=== PATIENT | male | born 1980 | race Caucasian/White ===

== ENCOUNTER → 2023-05-14 | Emergency (ER) | payer OTHER ==
[~2023-05-14] MED LIST: AMLODIPINE 10 MG TAB ONE
[2023-05-14 17:58] LABS: Absolute Basophils 0.1 K/uL (0-0.5); Absolute Eosinophils 0.2 K/uL (0-0.5); Absolute Lymphocytes (CBC) 1.3 K/uL (0.7-4.9); Absolute Monocytes 0.5 K/uL (0.1-1.3); Absolute Neutrophil 4.8 K/uL (1.8-8.0); Basophils % 1.1 % (0-1.3); Eosinophils % 2.5 % (0-4.4); Hematocrit 41.6 % (39.6-49.0); Hemoglobin 14.5 g/dL (13.6-17.9); Lymphocytes % 19.5 % (15.3-44.8); MCH 29.4 pg (27.0-35.0); MCHC 34.9 g/dL (32.0-36.0); MCV 84.3 fL (80-100); MPV 7.4 fL (7.6-11.3); Monocytes % 7.8 % (3.3-12.3); Neutrophils % 69.1 % (41.7-73.7); Nucleated Red Blood Cells % 0.1 % (0-0); Platelets 296 thou/uL (152-406); RBC Red Blood Cell Count 4.94 M/uL (4.33-5.43); Red Cell Distribution Width 14.5 % (12.1-15.2)
[2023-05-14 18:26] LABS: Anion Gap 7.1 mEq/L (5.0-15.0); Potassium 3.1 mEq/L (3.5-5.1); Troponin High Sensitivity 7.3 pg/mL (<58.9)
--- NOTE | 2023-05-14 18:53 | ER ---
Nurse's Notes [facility] Name: Bishnu Hernandez Age: 42 yrs Sex: Male : 1980 Arrival Date: 05/14/2023 Time: 16:20 Bed DX1 Private MD: Diagnosis: Essential (primary) hypertension Presentation: 05/13 16:43 Chief complaint: Patient states: High BP for 20 years, getting worse for the past 2-3 ll1 months. SOB with exertion, some dizziness. Stopped taking BP medications about 1 year ago. Coronavirus screen: Client denies travel out of the [place] in the last 14 days. At this time, the client does not indicate any symptoms associated with coronavirus-19. Ebola Screen: Patient denies travel to an Ebola-affected area in the 21 days before illness onset. Initial Sepsis Screen: Does the patient meet any 2 criteria? No. Patient's initial sepsis screen is negative. Does the patient have a suspected source of infection? No. Patient's initial sepsis screen is negative. Risk Assessment: Do you want to hurt yourself or someone else? Patient reports no desire to harm self or others. Onset of symptoms was March 03, 2023. 16:43 Method Of Arrival: Ambulatory ll1 16:43 Acuity: JENNIFER 2 ll1 Triage Assessment: 16:47 General: Appears uncomfortable, Behavior is calm, cooperative, appropriate for age. ll1 General: Reports high BP. Pain: Denies pain. Neuro: Reports dizziness, high BP. 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 - Social history:: Smoking status: Patient denies any tobacco usage or history of. Screenin:49 [facility] ED Fall Risk Assessment (Adult) History of falling in the last 3 months, iw including since admission No falls in past 3 months (0 pts) Confusion or Disorientation No (0 pts) Intoxicated or Sedated No (0 pts) Impaired Gait No (0 pts) Mobility Assist Device Used No (0 pt) Altered Elimination No (0 pt) Score/Fall Risk Level. Abuse screen: Denies threats or abuse. Denies injuries from another. Nutritional screening: No deficits noted. Tuberculosis screening: No symptoms or risk factors identified. Assessment: 18:03 General: Appears in no apparent distress. comfortable, Behavior is calm, cooperative, ap3 appropriate for age. Pain: Denies pain. Neuro: Level of Consciousness is awake, alert, obeys commands, Oriented to person, place, time, situation, Appropriate for age. Cardiovascular: Patient's skin is warm and dry. Respiratory: Airway is patent Respiratory effort is even, unlabored, Respiratory pattern is regular, symmetrical. 18:49 Reassessment: Patient appears in no apparent distress at this time. Patient and/or iw family updated on plan of care and expected duration. Pain level reassessed. Patient is alert, oriented x 3, equal unlabored respirations, skin warm/dry/pink. 19:06 Reassessment: Patient appears in no apparent distress at this time. ERP aware of BP, ok iw to discharge home. Vital Signs: 16:43 BP 207 / 138; Pulse 80; Resp 17; Temp 97.1; Pulse Ox 100% ; ll1 18:46 BP 204 / 110; Pulse 79; Resp 16; Pulse Ox 98% on R/A; iw ED Course: 16:24 Patient arrived in ED. ae5 16:29 Nicolas Perez MD is Attending Physician. ec2 16:37 Arm band placed on. ll1 16:45 Triage completed. ll1 17:56 Initial lab(s) drawn, by me, sent to lab. Inserted saline lock: 22 gauge in right ap3 antecubital area, using aseptic technique. Blood collected. 18:03 EKG done, by ED staff, reviewed by Nicolas Perez MD. ap3 18:04 Attending Physician role handed off by Nicolas Perez MD ec2 18:04 Noel Pereira MD is Attending Physician. ec2 18:04 Patient has correct armband on for positive identification. ap3 Administered Medications: 18:50 CANCELLED (Physician Discretion): norvasc2.5 mg PO once iw Medication: 18:49 VIS not applicable for this client. iw Outcome: 18:53 Discharge ordered by MD. rt 19:07 Discharged to home ambulatory, iw 19:07 Condition: good 19:07 Discharge instructions given to patient, Instructed on discharge instructions, follow up and referral plans. medication usage, Demonstrated understanding of instructions, follow-up care, medications, Prescriptions given X 1, 19:07 Patient left the ED. iw Signatures: Sylvia Segovia RN RN iw Pavithra Elizondo RN RN ap3 Elli Augustin RN RN ll1 Noel Pereira MD MD rt Nicolas Perez MD MD ec2 Dipti Felix ae5 Corrections: (The following items were deleted from the chart) 16:46 16:43 Chief complaint: Patient states: High BP for 20 years, getting worse for the past ll1 2-3 months. ll1 16:47 16:43 Chief complaint: Patient states: High BP for 20 years, getting worse for the past ll1 2-3 months. SOB with exertion, some dizziness ll1
--- NOTE | 2023-05-14 18:53 | EDPHYS ---
Physician Documentation [facility] Name: Bishnu Hernandez Age: 42 yrs Sex: Male : 1980 Arrival Date: 05/14/2023 Time: 16:20 Bed DX1 Private MD: ED Physician Noel Pereira HPI: 05/13 16:51 This 42 yrs old Male presents to ER via Ambulatory with complaints of Blood ec2 Pressure Problem. 16:51 Patient arrives today for evaluation of elevated blood pressure. Patient reports he has ec2 noted blood pressures in the systolics of 200. Patient reports no chest pain, no difficulty breathing, no strokelike symptoms. Patient reports he is asymptomatic. Patient reports that he is supposed to be on propranolol, amlodipine, hydrochlorothiazide for his high blood pressure however has not been taking this for the past year. . 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 - Social history:: Smoking status: Patient denies any tobacco usage or history of. ROS: 16:51 Constitutional: as per hpi ec2 Exam: 16:51 Constitutional: GEN: NAD Head: atraumatic Eyes: EOMI Ears: External ears are ec2 normal. CV: regular rate LUNGS: no respiratory distress ABD: non-distended SKIN: no evidence of rashes MSK: no evidence of trauma NEURO: moves all extremities equally Vital Signs: 16:43 BP 207 / 138; Pulse 80; Resp 17; Temp 97.1; Pulse Ox 100% ; ll1 18:46 BP 204 / 110; Pulse 79; Resp 16; Pulse Ox 98% on R/A; iw MDM: 16:32 Patient medically screened. ec2 16:51 Data reviewed: vital signs. ED course: Patient arrives today for evaluation of ec2 hypertension. Examination remarkable for well-appearing nontoxic dividual is otherwise in no acute distress. Will obtain lab work, EKG, troponin. Currently evaluating for kidney function, specifically renal dysfunction, cardiac disease. Ultimately I doubt ACS, doubt stroke given lack of symptoms.. 17:56 Transition of care: After a detail discussion of the patient's case, care is ec2 transferred to Noel Pereira MD. ED course: Patient signed out to physician with pending lab work, likely discharge given asymptomatic hypertension.. 18:03 ED course: EKG independently reviewed and interpreted by me, shows normal sinus rhythm, ec2 rate of 76, no acute ST segment elevations, nonconcerning intervals. . 18:54 Differential Diagnosis Hypertension. I considered the following discharge prescriptions rt or medication management in the emergency department Medications were administered in the Emergency Department. See MAR. Care significantly affected by the following chronic conditions: Hypertension. Counseling: I had a detailed discussion with the patient and/or guardian regarding the historical points, exam findings, and any diagnostic results supporting the discharge/admit diagnosis, lab results, the need for outpatient follow up, to return to the emergency department if symptoms worsen or persist or if there are any questions or concerns that arise at home. 05/13 16:49 Order name: CBC with Diff; Complete Time: 18:28 ec2 05/13 16:49 Order name: BMP; Complete Time: 18:28 ec2 05/13 16:49 Order name: Troponin HS; Complete Time: 18:28 ec2 05/13 16:49 Order name: EKG - Nurse/Tech; Complete Time: 18:03 ec2 Administered Medications: 18:50 CANCELLED (Physician Discretion): norvasc2.5 mg PO once iw Disposition Summary: 05/14/23 18:53 Discharge Ordered Condition: Stable rt Diagnosis - Essential (primary) hypertension rt Followup: ec2 - With: Private Physician - When: - Reason: Re-evaluation by your physician Discharge Instructions: - Hypertension, Adult rt - Discharge Summary Sheet ec2 Forms: - Medication Reconciliation Form rt - Thank You Letter rt - Antibiotic Education rt - Prescription Opioid Use rt - Patient Portal Instructions rt - Leadership Thank You Letter rt Prescriptions: - amlodipine 5 mg Oral tablet - take 1 tablet ORAL route daily; 30 tablet; Refills: 0, Product Selection ec2 Permitted Signatures: Dispatcher [employer] Sylvia Lawton RN RN iw Elli Augustin RN RN ll1 Noel Pereira MD MD rt Nicolas Perez MD MD ec2 Corrections: (The following items were deleted from the chart) 18:50 18:50 Norvasc PO 2.5 mg PO once ordered. iw iw
[2023-05-14 19:42] VITALS: BP 204/110; TEMP 97.1; O2SAT 98
== END ==
LOC: ER 16:20
DX: I10 Essential (primary) hypertension (principal); Z85.22 Personal history of malignant neoplasm of nasal cavities, middle ear, and accessory sinuses; Z85.819 Personal history of malignant neoplasm of unspecified site of lip, oral cavity, and pharynx
CPT/HCPCS: 36415; 80048; 84484; 85025; 93005